=== PATIENT | female | born 1975 | race Caucasian/White ===

== ENCOUNTER 2018-06-21 06:44 | Emergency (ER) | payer MEDICAID ==
[~2018-06-21] VITALS: Ht 160 cm; Wt 73.2 kg
[~2018-06-21 06:44] MED LIST: ACET-141 PO; CIPR500T4 PO; PHEN-538 PO; PREN1TAB62 PO
[2018-06-21 06:46] VITALS: BP 144/84; PULSE 89; RESP 18; Ht 160 cm; Wt 73.2 kg
[2018-06-21] MEDS ORDERED: LIDOCAINE 1% (MPF) 5 ML VIAL INJ ONE (07:30)
[2018-06-21] MEDS ORDERED: CEFTRIAXONE 1 GM INJ IM ONE (07:30)
[2018-06-21] MEDS ORDERED: CIPR500T4 PO (08:34)
--- NOTE | 2018-06-21 09:17 | ERD ---
ER Documentation Chief Complaint Chief Complaint pain/bleeding with urination x 3 days HPI 42-year-old female presenting with dysuria times 3 days. Patient denies any back pain. She states she had the symptoms for years ago. She has urinary frequency. Denies any pelvic pain. Denies hematuria. Denies medical problems. LNMP June 04. NKDA. Surgical history denies. Up-to-date on vaccinations. Social history denies ROS All systems reviewed and are negative except as per history of present illness. Medications Home Meds Active Scripts Ciprofloxacin Hcl* (Ciprofloxacin Hcl*) 500 Mg Tablet, 500 MG PO BID for 7 Days, TAB Prov:YANETH PEREZ PA-C 06/21/18 Phenazopyridine Hcl* (Pyridium*) 200 Mg Tab, 200 MG PO TID PRN for BURNING, #6 TAB Prov:SERGIO GRANADO 01/06/15 Ciprofloxacin Hcl* (Ciprofloxacin Hcl*) 500 Mg Tablet, 500 MG PO BID for 10 Days, TAB Prov:SERGIO GRANADO 01/06/15 Acetaminophen* (Acetaminophen*) 500 MG Extra Strength Tablet, 500 MG PO q 6 hours PRN for PAIN AND OR ELEVATED TEMP, #30 TAB Prov:EULOGIO PETERSON MD 03/21/14 Reported Medications Vit-Iron Fumarate-FA ( Vitamin Tablet) 1 Each Tablet, 1 TAB PO AM, TAB 03/19/14 Allergies Allergies: Coded Allergies: No Known Allergy (Unverified , 03/19/14) PMhx/Soc History of Surgery: Yes (C-SECTIONS) Hx Miscellaneous Medical Probl: Yes (GESTATIONAL DIABETES) Hx Alcohol Use: No Hx Substance Use: No Hx Tobacco Use: No Smoking Status: Never smoker FmHx Family History: No diabetes, No coronary disease, No other Physical Exam Vitals Vital Signs Date Temp Pulse Resp B/P (MAP) Pulse Ox O2 O2 Flow FiO2 Time Delivery Rate 06/21/18 97.2 89 18 144/84 98 06:46 (104) Physical Exam GENERAL: The patient is well-appearing, well-nourished, in no acute distress CHEST: Clear to auscultation bilaterally. There are no rales, wheezes or rhonchi. HEART: Regular rate and rhythm. No murmurs, clicks, rubs or gallops. ABDOMEN:Soft and nondistended. Good bowel sounds. No rebound or guarding. No gross peritonitis. No gross organomegaly or masses. tender to palpation over suprapubic region BACK: No midline or flank tenderness. Results 24 hrs Laboratory Tests Test 06/21/18 08:20 06/21/18 08:21 Bedside Urine pH (LAB) 6.5 Bedside Urine Protein (LAB) 2+ Bedside Urine Glucose (UA) Negative Bedside Urine Ketones (LAB) Negative Bedside Urine Blood 3+ Bedside Urine Nitrite (LAB) Negative Bedside Urine Leukocyte Esterase (L 3+ POC Beta HCG, Qualitative NEGATIVE Current Medications Medications Dose Sig/Timmy Start Time Status Last (Trade) Ordered Route PRN Stop Time Admin Dose Reason Admin Ceftriaxone 1 gm ONCE ONCE 06/21/18 DC 06/21/18 Sodium IM 07:30 08:05 (Rocephin) 06/21/18 07:31 Lidocaine 5 ml ONCE ONCE 06/21/18 DC 06/21/18 (Xylocaine INJ 07:30 08:05 1% (Mpf)) 06/21/18 07:31 Procedures/MDM ER course: Rocephin given ED. Positive urinalysis. MDM: 42-year-old female presenting with dysuria and urinary frequency. Christel ent's urine shows signs of infection. Patient be discharged with supportive medications and antibiotics. Patient is told to take medication as prescribed. I will suspicion for pyelonephritis. Patient has CVA tenderness on exam. I have low suspicion for acute abdominal emergency as patient's exam is non- concerning. I do not feel blood work or further imaging was indicated. Patient is recommended follow-up with primary care. All questions answered at discharge. Patient is discharged strict ER precautions Departure Diagnosis: Primary Impression: UTI (urinary tract infection) Condition: Stable Patient Instructions: Understanding Urinary Tract Infections (UTIs) Referrals: [facility] YOU HAVE RECEIVED A MEDICAL SCREENING EXAM AND THE RESULTS INDICATE THAT YOU DO NOT HAVE A CONDITION THAT REQUIRES URGENT TREATMENT IN THE EMERGENCY DEPARTMENT. FURTHER EVALUATION AND TREATMENT OF YOUR CONDITION CAN WAIT UNTIL YOU ARE SEEN IN YOUR DOCTORS OFFICE WITHIN THE NEXT 1-2 DAYS. IT IS YOUR RESPONSIBILITY TO MAKE AN APPOINTMENT FOR FOLOW-UP CARE. IF YOU HAVE A PRIMARY DOCTOR --you should call your primary doctor and schedule an appointment IF YOU DO NOT HAVE A PRIMARY DOCTOR YOU CAN CALL OUR PHYSICIAN REFERRAL HOTLINE AT IF YOU CAN NOT AFFORD TO SEE A PHYSICIAN YOU CAN CHOSE FROM THE FOLLOWING [facility] [address] [facility] [address] [facility] [facility] [address] [facility] [address] [facility]. [facility] [address] [facility]. [facility] [address] Additional Instructions: FOLLOW UP WITH YOUR PRIMARY CARE PHYSICIAN TOMORROW.Return to this facility if you are not improving as expected. YANETH PEREZ PA-C Jun 21, 2018 09:17
== END 2018-06-21 08:55 | disposition home or self-care (01) ==
LOC: FTE 06:44
DX: N39.0 Urinary tract infection, site not specified (principal)
CPT/HCPCS: 81003; 81025; 96372; J0696; Z7502; Z7610